=== PATIENT | male | born 1940 | race Caucasian/White ===

== ENCOUNTER 2018-05-26 23:41 | Inpatient (IN) | payer MEDICARE, OTHER ==
[~2018-05-26] VITALS: Ht 177.8 cm; Wt 84.1 kg
--- NOTE | ~2018-05-26 | OP ---
PATIENT NAME: SANDY SERRANO MEDICAL RECORD: [id number] :38 LOCATION:D. D.2114 ADMISSION DATE:05/27/18 SURGEON: NEO BERGMAN MD DATE OF OPERATION: 05/27/2018 SURGEON: Noe Bergman MD ANESTHESIA: General, Dr. Fofana. OPERATION PERFORMED: Insertion of dual chamber pacing system. PREOPERATIVE DIAGNOSES: Third-degree heart block with profound bradycardia. POSTOPERATIVE DIAGNOSES: Third-degree heart block with profound bradycardia. INDICATION FOR OPERATION: Complete heart block, bradycardia. FINDINGS AT OPERATION: The pulse generator is Medtronic Adapta ADDR01, serial #[id number]. Atrial Lead Medtronic model #5568-53, serial #[id number]. Ventricular lead Medtronic model #4074-58, serial #[id number]. Thresholds: Atrial lead 1 volt, current lead threshold ____, impedance 584 ohms, P-wave 2.0. Ventricular Lead: Threshold 0.7 volts, current lead threshold 0.6 mA, resistance 1207, R-wave 4.0. ESTIMATED BLOOD LOSS: Less than 5 cc. DESCRIPTION OF PROCEDURE: After informed consent and adequate preoperative medication evaluation, the patient was brought to the operating room and placed on the table in the supine position. After induction of anesthesia, the left chest was prepped and draped in sterile field utilizing Betadine scrub, alcohol, and Betadine solution. Betadine-impregnated drape was also used. Lidocaine 1% was infiltrated in the left subclavicular space. Incision was made and dissection carried down the fascia. A pacemaker pocket was formed. Subclavian vein was cannulated with the introducers. The leads were then placed in the heart. The above electrophysiologic study was done. The leads were secured. The leads were then connected to the pulse generator and pacemaker placed in the pocket. Pacemaker fired, captured and sensed appropriately. Pocket was irrigated and instrument count and sponge count were correct times 2. Pocket was closed in layers utilizing 3-0 Vicryl on deep subcutaneous tissue, 3-0 Vicryl on superficial subcutaneous tissue and skin approximated with 5-0 subcuticular Monocryl. Sterile dressings were applied. The patient tolerated the procedure well and transferred to the post-anesthesia recovery in satisfactory condition. TRANSINT:[id number] Voice Confirmation ID: [id number] DOCUMENT ID: [id number] OPERATIVE REPORT [id number] SANDY SERRANO EDWARD MD at 1256 CC: [id number] DICTATION DATE: 05/27/181828 RUBBER GASKET INSPECTOR TRIMMER: 05/27/18 1851 DIS IN 05/28/18 [facility] [address] [id number]
--- NOTE | ~2018-05-26 | CN ---
PATIENT NAME:SANDY SERRANO MEDICAL RECORD: [id number] : 38 LOCATION:[facility] D.2114 ADMIT DATE: 05/27/18 ACCOUNT: [id number] CONSULTING PHYSICIAN: MIGUEL VANG MD REFERRING PHYSICIAN: JANNET PEREZ MD DATE OF CONSULTATION: 05/27/2018 Cardiology Consultation ADMITTING DIAGNOSES: 1. Bradycardia. 2. Coronary artery disease. 3. Status post coronary bypass graft surgery. 4. Hypertension. 5. Hyperlipidemia. HISTORY OF PRESENT ILLNESS: This is a gentleman with a past history of coronary artery disease, status post coronary bypass graft surgery 11 years ago, who presents with symptomatic bradycardia, heart rates in the 20s-30s and he is on no AV blocking medications. He has not had any chest pain or chest discomfort compatible with angina, only weak feeling and dizziness associated with the bradycardia. REVIEW OF SYSTEMS: The patient reports easy bruising but reports no swollen glands. The patient reports no fever, no night sweats, no significant weight gain, no significant weight loss. No significant exercise tolerance. The patient reports no dry eyes, no irritation, no vision change. Patient reports no difficulty hearing and no ear pain. Patient reports no frequent nose bleeds or nose and sinus problems. Patient reports on arm pain on exertion. No shortness of breath while lying down. No history of heart murmur. Patient reports no cough, no wheezing or coughing up blood. Patient reports no abdominal pain, no vomiting. Normal appetite. No diarrhea and not vomiting blood. No nausea and no constipation. Patient reports no incontinence. No difficulty urinating. No hematuria. No increased frequency. Patient reports no muscle aches. No weakness, no arthralgias, no back pain. No swelling of the extremities. Patient reports no abnormal mole, no jaundice, no rashes. Reports no loss of consciousness. No weakness and no numbness. No seizures, dizziness, or headaches. The patient reports no depression, no sleep disturbance, feeling safe in a relationship and no alcohol abuse. Patient reports on fatigue. Reports no runny nose or sinus pressure. No itching, no hives, and no frequent sneezing. PHYSICAL EXAMINATION: GENERAL APPEARANCE: Well-nourished, well-developed, appears stated age. Level of distress, comfortable. PSYCHIATRIC: Mental status, alert, normal affect. Orientation, oriented to time, place and person. EYES: Lids and conjunctiva, noninjected. No discharge, no pallor. ENT: Lips, teeth, gums, normal dentition. Oropharynx, no cyanosis, no pallor. NECK: Carotid arteries, bilateral normal upstroke, no bruits, no thrills. JUGULAR VEINS: No jugular venous pressure or distention. CERVICAL LYMPH NODES: Nontender, nonenlarged. THYROID: Not enlarged. Nontender. No nodules. LUNGS: Respiratory effort, unlabored. CHEST: Normal curvature. No thoracic deformity. No chest wall tenderness. CONSULT REPORT [id number] EDDS,SANDY E Percussion, resonant. Auscultation, clear. No wheezes, no rales, no rhonchi. CARDIOVASCULAR: Precordial exam, nondisplaced. No heaves or pericardial thrills. Rate and rhythm, regular. Heart sounds, normal S1, normal S2. No S3, no gallop, no rub. Systolic murmur, not heard. Diastolic murmur, not heard. EXTREMITIES: No cyanosis, no edema. Peripheral pulses, full and equal in all extremities, except as noted. No bruits appreciated. ABDOMEN: Soft, nondistended. Normal aorta. No bruit. Nontender. No masses. Liver, nontender, no hepatomegaly. Spleen, nontender, no splenomegaly. MUSCULOSKELETAL: No joint tenderness. No joint swelling. No erythema. NEUROLOGICAL: Normal gait, normal strength, normal tone. SKIN: Warm and dry. OVERALL IMPRESSION: Bradycardia with heart block. We will proceed with pacemaker implantation. Further care depends upon the results after permanent pacemaker. TRANSINT:[id number] Voice Confirmation ID: [id number] DOCUMENT ID: [id number] MIGUEL VANG MD at 1325 CC: [id number] DICTATION DATE: 05/27/18 1125 MANAGER FUND: 05/27/18 1313 DIS IN 05/28/18 [place] [id number] [place] [id number]
--- NOTE | ~2018-05-26 | EC ---
PATIENT:SANDY SERRANO DATE OF SERVICE: 05/27/18 SEX: M MEDICAL RECORD: [id number] DATE OF : 38 LOCATION:D.M2 D.211 AGE OF PATIENT: 77 ADMISSION DATE: 05/27/18 REFERRING PHYSICIAN: INTERPRETING PHYSICIAN: MIGUEL GUTIERREZ MD ECHOCARDIOGRAM REPORT ECHO CHARGES 4 ECHO COMPLETE Date: 05/27 CLINICAL DIAGNOSIS: BRADYCARDIA HX OF CAD/CABG ECHOCARDIOGRAPHIC MEASUREMENTS (adult normal given) AC root (d.<3.7cm) 4.9 cm LV Septum d (<1.2 cm> 1.5 cm Valve Excursion 1.5 cm LV Septum (systole) 1.6 cm Left Atria (s.<4.0cm> 4.5 cm LVPW d(<1.2cm) 1.4 cm RV (d.<2.3cm) 4.8 cm LVPW (sytole) 2.0 cm LV diastole(<5.6CM) 5.3 cm MV E-F(>70mm/sec) cm LV systole 3.5 cm LVOT Diameter 2.0 cm MV exc.(>10mm) 2.2 cm Est.ejection fraction (50-75%) % DOPPLER: LVIT cm/sec A 124 cm/sec E 97.0 cm/sec LA cm/sec RVSP 49 mmHg LVOT 162 cm/sec AOP1/2T m/s Asc. Ao 319 cm/sec RVOT 108 cm/sec RA cm/sec PA 201 cm/sec AV Gradient Peak 40.72mmHg AV Mean 21.52mmHg AV Area 1.4 cm MV Gradient Peak 4.82 mmHg MV Mean 1.47 mmHg MV Area cm COMMENTS: Boiler Or Engine Operator: Kaylee ONEILL Wildlife Management Professor: 1 Dr. Gutierrez TAPE# PACS Pericardial Effusion N DATE OF SERVICE: 05/27/2018 FINDINGS: 1. Left ventricular chamber size is within normal limits. Left ventricular systolic function is normal. Overall ejection fraction is estimated at 55%. 2. Left atrium is enlarged at 4.5 cm. Right atrium and right ventricle chamber sizes are as well [id number] dilated. 3. Valvular structures: Aortic valve demonstrates mild calcific aortic stenosis, valve area of 1.4 cm-squared and gradient of 40 mm across the valve. The remaining valvular structures have normal structure and motion. ECHOCARDIOGRAM REPORT [id number] YASSINE SERRANOYDKevin Brown 4. Doppler interrogation else loera reveals [id number] mitral regurgitation and moderate tricuspid regurgitation. No other valvular insufficiency or stenosis; however, pulmonary systolic pressure is elevated, estimated at 50 mmHg. 5. No evidence of pericardial effusion or left ventricular thrombus. TRANSINT:[id number] Voice Confirmation ID: [id number] DOCUMENT ID: [id number] MIGUEL GUTIERREZ MD at 1325 CC: [id number] DICTATION DATE: 05/27/18 1256 INDUSTRIAL MILLWRIGHT: 05/27/18 1355 DIS IN 05/28/18 [facility] [address] [id number]
[2018-05-26] MEDS ORDERED: CRESTOR5 MG PO (23:52)
[2018-05-26] MEDS ORDERED: PRINIVIL20 MG PO (23:52)
[2018-05-27] VITALS (10 sets, daily range): BP systolic 102–158; BP diastolic 48–77; Ht 177.8 cm; Wt 84.1 kg
[2018-05-27 00:44] LABS: HEMATOCRIT 44.1 % (42.0-54.0); LYMPHOCYTES 41.5 % (15-50); MCH 32.8 pg (26.0-34.0); MCV 96.5 fL (80.0-100.0); MEAN PLATELET VOLUME 10.2 fL (7.4-10.4); NEUTROPHILS 43.6 % (40-80); PLATELET COUNT 221 10x3/uL (130-400); RBC 4.57 10x6/uL (4.20-6.10); RDW 13.1 % (11.5-14.5); WBC 9.1 10x3/uL (4.8-10.8)
[2018-05-27 01:05] LABS: ALBUMIN 3.4 g/dL (3.4-5.0); ALKALINE PHOSPHATASE 47 U/L (46-116); ALT (SGPT) 26 U/L (10-68); BILIRUBIN - TOTAL 0.25 mg/dL (0.2-1.3); CALC OSMOLALITY 290 mosm/kg (275-300); CALCIUM 8.2 mg/dL (8.5-10.1); CARBON DIOXIDE 28.1 mmol/L (21.0-32.0); CHLORIDE - SERUM 106 mmol/L (98-107); CREATININE - SERUM 1.3 mg/dL (0.6-1.3); GLUCOSE 136 mg/dL (74-106); POTASSIUM - SERUM 4.3 mmol/L (3.5-5.1); PROTEIN - SERUM 7.5 g/dL (6.4-8.2); SODIUM 142 mmol/L (136-145); UREA NITROGEN 30 mg/dL (7-18); eGFR NON AFRICAN AMERICAN 57 mL/min (90-120)
[2018-05-27 01:18] LABS: CREATINE KINASE 189 UL (21-232)
[2018-05-27 01:19] LABS: TROPONIN-I < 0.017 ng/mL (0.000-0.060)
[2018-05-27 08:41] LABS: ALBUMIN 3.1 g/dL (3.4-5.0); ALKALINE PHOSPHATASE 40 U/L (46-116); ALT (SGPT) 23 U/L (10-68); CALC OSMOLALITY 286 mosm/kg (275-300); CALCIUM 7.6 mg/dL (8.5-10.1); CARBON DIOXIDE 25.8 mmol/L (21.0-32.0); CHLORIDE - SERUM 106 mmol/L (98-107); CREATININE - SERUM 1.2 mg/dL (0.6-1.3); GLUCOSE 109 mg/dL (74-106); POTASSIUM - SERUM 4.6 mmol/L (3.5-5.1); PROTEIN - SERUM 6.8 g/dL (6.4-8.2); SODIUM 141 mmol/L (136-145); UREA NITROGEN 27 mg/dL (7-18); eGFR NON AFRICAN AMERICAN 62 mL/min (90-120)
[2018-05-27 08:50] LABS: CREATINE KINASE 165 UL (21-232); MAGNESIUM - SERUM 2.4 mg/dL (1.8-2.4)
[2018-05-27 08:52] LABS: TROPONIN-I < 0.017 ng/mL (0.000-0.060)
[2018-05-27 15:38] LABS: APTT 30.7 SECONDS (22.8-39.4); PROTIME 12.8 SECONDS (11.6-15.0)
[2018-05-27 17:43] LABS: APPEARANCE CLEAR (CLEAR); BILIRUBIN NEGATIVE (NEGATIVE); COLOR YELLOW (YELLOW); GLUCOSE NEGATIVE (NEGATIVE); KETONE NEGATIVE (NEGATIVE); NITRITE NEGATIVE (NEGATIVE); PROTEIN NEGATIVE (NEGATIVE); SPECIFIC GRAVITY 1.015 (1.005-1.020); UROBILINOGEN NORMAL (NORMAL)
[2018-05-27 17:46] LABS: BACTERIA FEW /hpf (NONE SEEN); EPITHELIAL CELLS 0-5 /hpf (0-5); WHITE CELLS - URINE 0-5 /hpf (0-5)
[2018-05-28] VITALS: BP 133/57
[2018-05-28 04:00] VITALS: BP 137/69
[2018-05-28 04:03] LABS: BASOPHILS 0.3 % (0-2); HEMATOCRIT 42.1 % (42.0-54.0); HEMOGLOBIN 13.6 g/dL (13.5-17.5); IMMATURE GRANULOCYTES 0.2 % (0-5); LYMPHOCYTES 26.2 % (15-50); MCH 31.9 pg (26.0-34.0); MCHC 32.3 g/dL (31.0-37.0); MEAN PLATELET VOLUME 10.3 fL (7.4-10.4); NEUTROPHILS 57.3 % (40-80); PLATELET COUNT 179 10x3/uL (130-400); RBC 4.27 10x6/uL (4.20-6.10); RDW 13.8 % (11.5-14.5); WBC 9.4 10x3/uL (4.8-10.8)
[2018-05-28 04:05] LABS: MCV 98.6 fL (80.0-100.0)
[2018-05-28 04:11] LABS: APTT 30.4 SECONDS (22.8-39.4); INR 1.05 (0.85-1.17); PROTIME 13.3 SECONDS (11.6-15.0)
[2018-05-28 04:17] LABS: ANION GAP 9.9 mmol/L (8-16); CALCIUM 7.3 mg/dL (8.5-10.1); CARBON DIOXIDE 23.1 mmol/L (21.0-32.0); CREATININE - SERUM 1.1 mg/dL (0.6-1.3)
[2018-05-28 08:54] VITALS: BP 164/86
== END 2018-05-28 13:00 | disposition home or self-care (01) | DRG 243 ==
LOC: D.ER 23:41 → D.M2 05-27 01:56
PROVIDERS: Emergency Medicine; Internal Medicine Cardiovascular Disease; Internal Medicine Nephrology
PROC: 02H63JZ Insertion of Pacemaker Lead into Right Atrium, Percutaneous Approach (ICD-10-PCS; 2018-05-27)
PROC: 02HK3JZ Insertion of Pacemaker Lead into Right Ventricle, Percutaneous Approach (ICD-10-PCS; 2018-05-27)
PROC: 0JH606Z Insertion of Pacemaker, Dual Chamber into Chest Subcutaneous Tissue and Fascia, Open Approach (ICD-10-PCS; principal; 2018-05-27 17:00)
DX: I44.2 Atrioventricular block, complete (principal); N17.9 Acute kidney failure, unspecified; R00.1 Bradycardia, unspecified; I25.10 Atherosclerotic heart disease of native coronary artery without angina pectoris; Z95.1 Presence of aortocoronary bypass graft; I10 Essential (primary) hypertension; E78.5 Hyperlipidemia, unspecified; K21.9 Gastro-esophageal reflux disease without esophagitis